=== PATIENT | male | born 1945 | race African-American/Black ===

== ENCOUNTER 2016-09-23 09:12 | Day surgery (SDC) | payer OTHER ==
[~2016-09-23] VITALS: Ht 167.6 cm; Wt 93.0 kg
[~2016-09-23 09:12] MED LIST: ASPIRIN325 MG PO; CARVEDILOL3.125 MG PO; CARVEDILOL6.25 MG PO; CHOLESTEROL PILL; CILOSTAZOL100 MG PO; CLONIDINE HCL0.2 MG PO; COUMADIN,JANTOV10 MG PO; DAILY VITAMIN1 EAC4 PO; ENDOCET 5-3251 EAC1 PO; FLOMAX0.4 M1 PO; GLUCOPHAGE500 MG PO; HYDROCHLOROTHIA50 MG PO; ISOSORBIDE MONO60 MG PO; LOTREL 10/21 CAPSULE PO; METFORMIN HCL1000 MG PO; NITROSTAT0.4 MG SL; RANITIDINE HCL150 M1 PO; SIMVASTATIN40 MG PO; TAMSULOSIN HCL0.4 MG PO; VYTORIN 10-401 EACH PO; WARFARIN SODIUM4 MG PO; ZETIA10 MG PO; [UNRECOGNIZED DRUG - REMARK]
[2016-09-23 10:57] LABS: POINT-OF-CARE METER ID UU13113696
[2016-09-23 14:41] LABS: POINT-OF-CARE METER ID UU13113819
[2016-09-23 22:40] VITALS: BP 154/68
[2016-09-24 01:05] VITALS: BP 150/69
[2016-09-24 03:46] VITALS: BP 150/67
[2016-09-24 07:47] VITALS: BP 177/79
[2016-09-24 08:00] LABS: POINT-OF-CARE METER ID UU14174216
== END 2016-09-24 10:25 | disposition home or self-care (01) ==
LOC: CATH 09:12 → 4EAST 20:25
PROVIDERS: Internal Medicine Cardiovascular Disease
DX: I25.10 Atherosclerotic heart disease of native coronary artery without angina pectoris (principal); I25.84 Coronary atherosclerosis due to calcified coronary lesion; T82.855A Stenosis of coronary artery stent, initial encounter; Z98.61 Coronary angioplasty status; I35.0 Nonrheumatic aortic (valve) stenosis; I10 Essential (primary) hypertension; I70.213 Atherosclerosis of native arteries of extremities with intermittent claudication, bilateral legs; Z95.828 Presence of other vascular implants and grafts; E78.2 Mixed hyperlipidemia; E66.9 Obesity, unspecified; Z68.36 Body mass index [BMI] 36.0-36.9, adult; E11.59 Type 2 diabetes mellitus with other circulatory complications; Z87.891 Personal history of nicotine dependence; Z79.82 Long term (current) use of aspirin; Z79.84 Long term (current) use of oral hypoglycemic drugs
CPT/HCPCS: 82948; 85347; 93005; C1769; C1887; C1894; G0378; J0153; J1644; J1815; J2250; J3010; J7050

== ENCOUNTER 2016-12-13 14:42 | Emergency (ER) | payer OTHER ==
[~2016-12-13] VITALS: Ht 167.6 cm; Wt 94.1 kg
[2016-12-13 16:26] LABS: CHLORIDE 105 mEq/L (99-109); POTASSIUM 3.7 mEq/L (3.7-5.4); SODIUM 141 mEq/L (136-147)
[2016-12-13 16:28] LABS: GLUCOSE 93 mg/dL (70-99)
[2016-12-13 16:30] LABS: ANION GAP 13 MEQ/L (2-14)
[2016-12-13 16:31] LABS: EOSINOPHIL (%) 2.4 % (0-5); EOSINOPHIL COUNT 0.1 K/uL (0-0.3); HEMATOCRIT 31.5 % (38.0-50.0); IMMATURE GRANULOCYTE (%) 0.2 % (0.0-0.7); INSTRUMENT ABS NEUTROPHIL CT 3.2 K/uL; LYMPHOCYTE COUNT 1.5 K/uL (1.0-2.8); MCH 23.6 PG (29.0-34.0); MCHC 31.1 G/DL (30.0-36.0); MCV 75.9 FL (86-99); MEAN PLAT.VOLUME 10.2 uM^3 (9.0-12.4); MONOCYTE (%) 9.5 % (3-12); MONOCYTE COUNT 0.5 K/uL (0-0.8); NEUTROPHIL (%) 59.6 % (45-76); NEUTROPHIL COUNT 3.2 K/uL (1.8-6.4); PLATELET COUNT 346 K/uL (156-360); RBC DIS.WIDTH-CV 16.4 % (11.8-14.6); RBC DIS.WIDTH-SD 44.7 % (39-53); RED BLOOD COUNT 4.15 M/uL (4.00-5.50); WHITE BLOOD COUNT 5.4 K/uL (4.1-10.2)
[2016-12-13 16:32] LABS: GFR ESTIMATE (CALCULATED) > 59 mL/min/
[2016-12-13 16:33] LABS: UREA NITROGEN (BUN) 11 mg/dL (9-23)
[2016-12-13 16:43] LABS: TROP-I INTERPRETATION NEGATIVE; TROPONIN-I < 0.01 ng/mL (0.0-0.30)
[2016-12-13] MEDS ORDERED: LISINOPRIL20 MG PO (19:06)
[2016-12-13 20:55] VITALS: BP 165/82
== END 2016-12-13 20:58 | disposition home or self-care (01) ==
LOC: EME → EDBD 14:42 → EME 14:42
PROVIDERS: Emergency Medicine; Physician Assistant
DX: I10 Essential (primary) hypertension (principal); E11.9 Type 2 diabetes mellitus without complications; E78.5 Hyperlipidemia, unspecified; K21.9 Gastro-esophageal reflux disease without esophagitis; Z87.442 Personal history of urinary calculi; Z86.718 Personal history of other venous thrombosis and embolism; Z95.1 Presence of aortocoronary bypass graft; Z79.84 Long term (current) use of oral hypoglycemic drugs; Z79.82 Long term (current) use of aspirin; Z87.891 Personal history of nicotine dependence
CPT/HCPCS: 71010; 80048; 84484; 85025; 93005; 99281; 99285; J0360

== ENCOUNTER 2016-12-17 16:23 | Observation (INO) | payer OTHER ==
[~2016-12-17] VITALS: Ht 167.6 cm; Wt 92.0 kg
[~2016-12-17 16:23] MED LIST changes: +LISINOPRIL20 MG PO
[2016-12-17 17:12] LABS: MCH 23.3 PG (29.0-34.0); MCHC 30.7 G/DL (30.0-36.0); MCV 75.9 FL (86-99); MEAN PLAT.VOLUME 9.7 uM^3 (9.0-12.4); PLATELET COUNT 309 K/uL (156-360); RBC DIS.WIDTH-CV 16.3 % (11.8-14.6); RBC DIS.WIDTH-SD 44.8 % (39-53); RED BLOOD COUNT 3.95 M/uL (4.00-5.50); WHITE BLOOD COUNT 4.4 K/uL (4.1-10.2)
[2016-12-17 17:23] LABS: CHLORIDE 105 mEq/L (99-109); POTASSIUM 3.5 mEq/L (3.7-5.4); SODIUM 140 mEq/L (136-147)
[2016-12-17 17:25] LABS: GLUCOSE 153 mg/dL (70-99)
[2016-12-17 17:26] LABS: ANION GAP 10 MEQ/L (2-14)
[2016-12-17 17:29] LABS: GFR ESTIMATE (CALCULATED) > 59 mL/min/
[2016-12-17 17:30] LABS: UREA NITROGEN (BUN) 10 mg/dL (9-23)
[2016-12-17 17:33] LABS: TROP-I INTERPRETATION NEGATIVE; TROPONIN-I < 0.01 ng/mL (0.0-0.30)
[2016-12-17] MEDS ORDERED: LOW DOSE ASPIRI81 M1 PO (19:18)
[2016-12-17] MEDS ORDERED: COREG6.25 M1 PO (19:18)
[2016-12-17] MEDS ORDERED: DAILY VALUE1 EACH PO (19:18)
[2016-12-17] MEDS ORDERED: CILOSTAZOL100 MG PO (19:19)
[2016-12-17] MEDS ORDERED: NITROSTAT0.4 MG SL (19:19)
[2016-12-17] MEDS ORDERED: METFORMIN HCL1000 MG PO (19:19)
[2016-12-17] MEDS ORDERED: TAMSULOSIN HCL0.4 MG PO (19:20)
[2016-12-17] MEDS ORDERED: LISINOPRIL20 MG PO (19:21)
[2016-12-17] MEDS ORDERED: EZETIMIBE10 MG PO (19:21)
[2016-12-17] MEDS ORDERED: ENDOCET 5-3251 EACH PO (19:21)
[2016-12-17] MEDS ORDERED: PROTONIX40 MG PO (19:22)
[2016-12-17 23:48] VITALS: BP 117/56
[2016-12-17 23:55] LABS: TROP-I INTERPRETATION NEGATIVE; TROPONIN-I < 0.01 ng/mL (0.0-0.30)
[2016-12-18 04:41] VITALS: BP 106/57
[2016-12-18 05:33] LABS: TROP-I INTERPRETATION NEGATIVE; TROPONIN-I < 0.01 ng/mL (0.0-0.30)
[2016-12-18 08:14] VITALS: BP 132/64
[2016-12-18] MEDS ORDERED: CLONIDINE HCL0.1 MG PO (09:48)
== END 2016-12-18 14:07 | disposition home or self-care (01) ==
LOC: EME → EDBD 16:23 → EDOF 20:11 → 5WEST 21:06
PROVIDERS: Emergency Medicine; Family Medicine
DX: I16.0 Hypertensive urgency (principal); I10 Essential (primary) hypertension; R51 Headache; I25.10 Atherosclerotic heart disease of native coronary artery without angina pectoris; E78.5 Hyperlipidemia, unspecified; E11.9 Type 2 diabetes mellitus without complications; Z95.1 Presence of aortocoronary bypass graft; I73.9 Peripheral vascular disease, unspecified
CPT/HCPCS: 70450; 71010; 80048; 84484; 85027; 93005; 99281; 99285; G0378; J1644